=== PATIENT | female | born 1990 | race American Indian/Alaskan Native ===

== ENCOUNTER 2016-12-25 12:42 | Emergency (ER) | payer OTHER ==
[2016-12-25 13:43] VITALS: BP 125/81
[2016-12-25] MEDS ORDERED: TORADOL IM ONE (16:00)
--- NOTE | 2016-12-25 16:17 | Emergency Department Report ---
ED ENT HPI - General Chief complaint: Earache Stated complaint: EAR PAIN/TOOTH PAIN Time Seen by Provider: 12/25/16 15:22 Source: patient Mode of arrival: Ambulatory Limitations: No Limitations - History of Present Illness Initial comments: This is a 26-year-old female nontoxic, well nourished in appearance, no acute signs of distress presents to the ED complaining of right upper tooth pain that radiates towards right ear and head area patient denies any trauma to the region. Patient is a occurrence for past several months. Patient denies melena with the dentist. This denies any facial swelling, fever, chills, nausea , vomiting, chest pain, shortness of breath, stiff neck, nausea or vomiting. Patient denies any blurry vision. Patient states headache is worse headache she ever had and describes it as diffuse with aching level of 10 out of 10. Patient denies any visual changes. Patient denies thunderclap headache but stated she never had this headache before. Patient denies any allergies or past medical history. MD complaint: tooth pain, ear pain, other (headache) -: Gradual, month(s) Location: R ear, tooth # (1) 1 - tenderness and dental caries Severity: moderate Severity scale (0 -10): 10 Quality: aching Consistency: constant Improves with: none Worsens with: none Context- Dental: history of dental caries, poor dental care Associated Symptoms: toothache. denies: fever, cough, gum swelling, pain with swallowing, sore throat, tinnitus, hearing loss, discharge from ear, rhinorrhea - Related Data Previous Rx's Medication Instructions Recorded Last Taken Type Amoxicillin/K Clav Tab [Augmentin 1 tab PO Q12HR #20 tab 12/25/16 Unknown Rx 875 mg] Butalb/Acetamin/Caff 50-325-40 1 tab PO Q6HR PRN #30 tab 12/25/16 Unknown Rx [Fioricet] Allergies Allergy/AdvReac Type Severity Reaction Status Date / Time No Known Allergies Allergy Unverified 09/26/14 07:43 ED Dental HPI - General Chief complaint: Earache Stated complaint: EAR PAIN/TOOTH PAIN Time Seen by Provider: 12/25/16 15:22 Source: patient Mode of arrival: Ambulatory Limitations: No Limitations - Related Data Previous Rx's Medication Instructions Recorded Last Taken Type Amoxicillin/K Clav Tab [Augmentin 1 tab PO Q12HR #20 tab 12/25/16 Unknown Rx 875 mg] Butalb/Acetamin/Caff 50-325-40 1 tab PO Q6HR PRN #30 tab 12/25/16 Unknown Rx [Fioricet] Allergies Allergy/AdvReac Type Severity Reaction Status Date / Time No Known Allergies Allergy Unverified 09/26/14 07:43 ED Review of Systems ROS: Stated complaint: EAR PAIN/TOOTH PAIN Other details as noted in HPI Constitutional: denies: chills, fever Eyes: denies: eye pain, eye discharge, vision change ENT: dental pain. denies: ear pain, throat pain Respiratory: denies: cough, shortness of breath, wheezing Cardiovascular: denies: chest pain, palpitations Endocrine: no symptoms reported Gastrointestinal: denies: abdominal pain, nausea, diarrhea Genitourinary: denies: urgency, dysuria, discharge Musculoskeletal: denies: back pain, joint swelling, arthralgia Skin: denies: rash, lesions Neurological: denies: headache, weakness, paresthesias Psychiatric: denies: anxiety, depression Hematological/Lymphatic: denies: easy bleeding, easy bruising ED Past Medical Hx - Past Medical History Previous Medical History?: No - Surgical History Past Surgical History?: No - Social History Smoking Status: Never Smoker Substance Use Type: None - Medications Home Medications: Home Medications Medication Instructions Recorded Confirmed Last Taken Type Amoxicillin/K Clav Tab [Augmentin 1 tab PO Q12HR #20 tab 12/25/16 Unknown Rx 875 mg] Butalb/Acetamin/Caff 50-325-40 1 tab PO Q6HR PRN #30 tab 12/25/16 Unknown Rx [Fioricet] ED Physical Exam - General Limitations: No Limitations General appearance: alert, in no apparent distress - Head Head exam: Present: atraumatic, normocephalic - Eye Eye exam: Present: normal appearance, PERRL, EOMI. Absent: scleral icterus, conjunctival injection, nystagmus, periorbital swelling, periorbital tenderness Pupils: Present: normal accommodation - ENT ENT exam: Present: normal orophraynx, mucous membranes moist, TM's normal bilaterally, normal external ear exam - Expanded ENT Exam Expanded Ear exam: Present: normal external inspection Mouth exam: Present: normal external inspection, tongue normal. Absent: drooling, trismus, muffled voice, tongue elevation, laceration Teeth exam: Present: dental caries, fractured tooth # (1), dental tenderness # ( 1), gingival enlargement, other (no facial swelling noted. No abscess noted. Uvula midline. ) 1 - Fractured, Dental Tenderness Throat exam: Positive: normal inspection. Negative: tonsillar erythema, tonsillomegaly, tonsillar exudate, R peritonsillar mass, L peritonsillar mass - Neck Neck exam: Present: normal inspection, full ROM. Absent: tenderness, meningismus, lymphadenopathy, thyromegaly - Respiratory Respiratory exam: Present: normal lung sounds bilaterally. Absent: respiratory distress, wheezes, rales, rhonchi, stridor, chest wall tenderness, accessory muscle use, decreased breath sounds, prolonged expiratory - Cardiovascular Cardiovascular Exam: Present: regular rate, normal rhythm, normal heart sounds. Absent: bradycardia, tachycardia, irregular rhythm, systolic murmur, diastolic murmur, rubs, gallop - GI/Abdominal GI/Abdominal exam: Present: soft, normal bowel sounds. Absent: distended, tenderness, guarding, rebound, rigid, diminished bowel sounds - Rectal Rectal exam: Present: deferred - Extremities Exam Extremities exam: Present: normal inspection, full ROM, normal capillary refill. Absent: tenderness, pedal edema, joint swelling, calf tenderness - Back Exam Back exam: Present: normal inspection, full ROM. Absent: tenderness, CVA tenderness (R), CVA tenderness (L), muscle spasm, paraspinal tenderness, vertebral tenderness, rash noted - Neurological Exam Neurological exam: Present: alert, oriented X3, CN II-XII intact, normal gait, reflexes normal - Psychiatric Psychiatric exam: Present: normal affect, normal mood - Skin Skin exam: Present: warm, dry, intact, normal color. Absent: rash ED Course Vital Signs 12/25/16 13:39 Temperature 99.5 F Pulse Rate 77 Respiratory 18 Rate Blood Pressure 125/81 O2 Sat by Pulse 100 Oximetry - Reevaluation(s) Reevaluation #1: 12/25/16 16:25 Patient is speaking in full sentences with no signs of distress noted. ED Medical Decision Making - Medical Decision Making 26-year-old female presents with dental caries, gingivitis, and headache. Patient was examined by myself and patient is stable. CT of head/brain without contrast is obtained due to patient stating this to worse headache she ever had. Dictated By the radiologist with negative findings of any abnormalities. Patient received Toradol 60 mg IM in the ED and patient stated headache has significantly subsided. Patient states she feels much better. Patient received Augmentin, and Fioricet at discharge. Patient was instructed to follow -up with a primary care doctor/dentist in 24 hours or if symptoms worsen and continue return to emergency room as soon as possible possible. Patient is hemodynamically stable with stable vital signs. Patient states he is feeling better. At time time of discharge, the patient does not seem toxic or ill in appearance. No acute signs of distress noted. Patient agrees to discharge treatment plan of care. No further questions noted by the patient. Critical care attestation.: If time is entered above; I have spent that time in minutes in the direct care of this critically ill patient, excluding procedure time. ED Disposition Clinical Impression: Dental caries, Gingivitis Headache Qualifiers: Headache type: unspecified Headache chronicity pattern: unspecified pattern Intractability: not intractable Qualified Code(s): R51 - Headache Disposition: DC- TO HOME OR SELFCARE Is pt being admited?: No Does the pt Need Aspirin: No Condition: Stable Instructions: Gingivitis (ED), Dental Caries (ED), Acute Headache (ED), Amoxicillin/Clavulanate Potassium (By mouth) Additional Instructions: Follow up with a primary care doctor/dentist in 24 hours or if symptoms worsen and continue return to emergency room as soon as possible possible. Prescriptions: Amoxicillin/K Clav Tab [Augmentin 875 mg] 1 tab PO Q12HR #20 tab Butalb/Acetamin/Caff 50-325-40 [Fioricet] 1 tab PO Q6HR PRN #30 tab PRN Reason: Headache Referrals: LAURENT BENTON MD [Staff Physician] - 3-5 Days [facility] [Outside] - 24 Hours PRIMARY CARE, [Primary Care Provider] - 24 Hours Forms: Work/School Release Form(ED)
--- NOTE | 2016-12-25 16:48 | Cat Scan Report ---
CRANIAL CT SCAN: History: Severe headache. Serial contiguous axial images were obtained through the cranium. Intravenous contrast material was not administered. The ventricles are normal in size and appearance. There is no mass effect or midline shift. No areas of abnormally increased or decreased attenuation are seen. No mass lesion is seen. The mastoid air cells and visualized portions of the sinuses are normal. IMPRESSION: Cranial CT scan within normal limits.
== END 2016-12-25 18:12 | disposition home or self-care (01) ==
LOC: ED 12:42
DX: K02.9 Dental caries, unspecified (principal); K05.10 Chronic gingivitis, plaque induced; R51 Headache
CPT/HCPCS: 70450; 96372; 99283; J1885

== ENCOUNTER 2017-02-21 18:26 | Emergency (ER) | payer OTHER ==
[2017-02-21 20:58] LABS: Bilirubin,Urine NEG (Negative); Blood,Urine NEG (Negative); Ketones,Urine TR mg/dL (Negative); Leukocyte Esterase,Urine NEG (Negative); Mucus,Urine FEW /HPF; Nitrite,Urine NEG (Negative); Protein,Urine <15 mg/dL mg/dL (Negative); Urobilinogen,Urine < 2.0 mg/dL (<2.0)
[2017-02-21 21:00] LABS: Hematocrit 38.6 % (30.3-42.9); Hemoglobin 12.3 gm/dl (10.1-14.3); Mean Corpuscular Hemoglobin 23 pg (28-32); Mean Corpuscular Volume 70 fl (79-97); Red Blood Count 5.46 M/mm3 (3.65-5.03); White Blood Count 8.6 K/mm3 (4.5-11.0)
[2017-02-21 21:01] LABS: Basophils % (Auto) 0.5 % (0.0-1.8); Eosinophils % (Auto) 2.5 % (0.0-4.3); Mean Corpuscular HGB Conc 32 % (30-34); Platelet Count 253 K/mm3 (140-440); Red Cell Distribution Width 15.8 % (13.2-15.2)
[2017-02-21 21:14] LABS: Anion Gap 19 mmol/L; BUN/Creatinine Ratio 10; Blood Urea Nitrogen 6 mg/dL (7-17); Calcium 9.3 mg/dL (8.4-10.2); Carbon Dioxide 24 mmol/L (22-30); Chloride 98.3 mmol/L (98-107); Glucose 83 mg/dL (65-100); Potassium 3.9 mmol/L (3.6-5.0); Sodium 137 mmol/L (137-145)
--- NOTE | 2017-02-21 22:16 | Emergency Department Report ---
ED ENT HPI - General Chief complaint: Urogenital-Female Stated complaint: VOMITING,NAUSEA Time Seen by Provider: 02/21/17 21:55 Source: patient Mode of arrival: Ambulatory Limitations: No Limitations - History of Present Illness Initial comments: This is a 26-year-old female nontoxic, well nourished in appearance, no acute signs of distress presents to the ED with c/o of productive cough, vaginal discomfort, and nausea with vomiting. Patient describes productive cough as yellow/green mucus productive cough x1 month. Patient denies any vaginal discharge, concerns about STD, vaginal bleeding, nausea, vomiting, chest pain, shortness of breathe, headache, stiff neck, abdominal pain, pelvic pain, back pain. Patient stated vomit occurred yesterday 2 times but denies any nausea or vomiting today. Patient denies any dysuria, pyuria, or hematuria. Denies any allergies or past medical history. - Related Data Previous Rx's Medication Instructions Recorded Last Taken Type Amoxicillin/K Clav Tab [Augmentin 1 tab PO Q12HR #20 tab 12/25/16 Unknown Rx 875 mg] Butalb/Acetamin/Caff 50-325-40 1 tab PO Q6HR PRN #30 tab 12/25/16 Unknown Rx [Fioricet] Allergies Allergy/AdvReac Type Severity Reaction Status Date / Time No Known Allergies Allergy Unverified 09/26/14 07:43 ED Dental HPI - General Chief complaint: Urogenital-Female Stated complaint: VOMITING,NAUSEA Time Seen by Provider: 02/21/17 21:55 Source: patient Mode of arrival: Ambulatory Limitations: No Limitations - Related Data Previous Rx's Medication Instructions Recorded Last Taken Type Amoxicillin/K Clav Tab [Augmentin 1 tab PO Q12HR #20 tab 12/25/16 Unknown Rx 875 mg] Butalb/Acetamin/Caff 50-325-40 1 tab PO Q6HR PRN #30 tab 12/25/16 Unknown Rx [Fioricet] Allergies Allergy/AdvReac Type Severity Reaction Status Date / Time No Known Allergies Allergy Unverified 09/26/14 07:43 ED Review of Systems ROS: Stated complaint: VOMITING,NAUSEA Other details as noted in HPI ED Past Medical Hx - Past Medical History Previous Medical History?: No - Surgical History Past Surgical History?: No - Social History Smoking Status: Former Smoker Substance Use Type: None - Medications Home Medications: Home Medications Medication Instructions Recorded Confirmed Last Taken Type Amoxicillin/K Clav Tab [Augmentin 1 tab PO Q12HR #20 tab 12/25/16 Unknown Rx 875 mg] Butalb/Acetamin/Caff 50-325-40 1 tab PO Q6HR PRN #30 tab 12/25/16 Unknown Rx [Fioricet] ED Physical Exam - General Limitations: No Limitations ED Course Vital Signs 02/21/17 20:02 Temperature 98.5 F Pulse Rate 93 H Respiratory 18 Rate Blood Pressure 116/65 O2 Sat by Pulse 99 Oximetry ED Medical Decision Making - Lab Data Result diagrams: 02/21/17 20:20 02/21/17 20:20 Critical care attestation.: If time is entered above; I have spent that time in minutes in the direct care of this critically ill patient, excluding procedure time. ED Disposition Condition: Stable Referrals: PRIMARY CARE, [Primary Care Provider] - 3-5 Days
--- NOTE | 2017-02-21 22:21 | Emergency Department Report ---
- General Chief Complaint: Urogenital-Female Stated Complaint: VOMITING,NAUSEA Time Seen by Provider: 02/21/17 21:55 Source: patient Mode of arrival: Ambulatory Limitations: No Limitations - History of Present Illness Initial Comments: This is a 26-year-old female nontoxic, well nourished in appearance, no acute signs of distress presents to the ED with c/o of productive cough, vaginal discomfort, and nausea with vomiting. Patient describes productive cough as yellow/green mucus productive cough x1 month. Patient denies any vaginal discharge, concerns about STD, vaginal bleeding, nausea, vomiting, chest pain, shortness of breathe, headache, stiff neck, abdominal pain, pelvic pain, back pain. Patient stated vomit occurred yesterday 2 times but denies any nausea or vomiting today. Patient denies any dysuria, pyuria, or hematuria. Denies any allergies or past medical history. MD Complaint: cough -: Gradual, month(s) (1) Severity: mild Severity scale (0 -10): 0 Improves With: nothing Worsens With: nothing Associated Symptoms: cough. denies: fever, chills, myalgias, diaphoresis, headache, rhinorrhea, nasal congestion, sore throat, stiff neck, chest pain, shortness of breath, abdominal pain, nausea, vomiting, diarrhea, dysuria, rash, confusion, right sweats, weight loss, epistaxis, hoarseness, ear pain Treatments Prior to Arrival: none - Related Data Previous Rx's Medication Instructions Recorded Last Taken Type Amoxicillin/K Clav Tab [Augmentin 1 tab PO Q12HR #20 tab 12/25/16 Unknown Rx 875 mg] Butalb/Acetamin/Caff 50-325-40 1 tab PO Q6HR PRN #30 tab 12/25/16 Unknown Rx [Fioricet] Amoxicillin 500 mg PO Q12H #20 capsule 02/21/17 Unknown Rx Metoclopramide HCl [Reglan TAB] 5 mg PO Q8H 30 Days tablet 02/21/17 Unknown Rx Allergies Allergy/AdvReac Type Severity Reaction Status Date / Time No Known Allergies Allergy Unverified 09/26/14 07:43 ED Review of Systems ROS: Stated complaint: VOMITING,NAUSEA Other details as noted in HPI Constitutional: denies: chills, fever Eyes: denies: eye pain, eye discharge, vision change ENT: denies: ear pain, throat pain Respiratory: cough. denies: shortness of breath, wheezing Cardiovascular: denies: chest pain, palpitations Endocrine: no symptoms reported Gastrointestinal: denies: abdominal pain, nausea, diarrhea Genitourinary: denies: urgency, dysuria, discharge Musculoskeletal: denies: back pain, joint swelling, arthralgia Skin: denies: rash, lesions Neurological: denies: headache, weakness, paresthesias Psychiatric: denies: anxiety, depression Hematological/Lymphatic: denies: easy bleeding, easy bruising ED Past Medical Hx - Past Medical History Previous Medical History?: No - Surgical History Past Surgical History?: No - Social History Smoking Status: Former Smoker Substance Use Type: None - Medications Home Medications: Home Medications Medication Instructions Recorded Confirmed Last Taken Type Amoxicillin/K Clav Tab [Augmentin 1 tab PO Q12HR #20 tab 12/25/16 Unknown Rx 875 mg] Butalb/Acetamin/Caff 50-325-40 1 tab PO Q6HR PRN #30 tab 12/25/16 Unknown Rx [Fioricet] Amoxicillin 500 mg PO Q12H #20 capsule 02/21/17 Unknown Rx Metoclopramide HCl [Reglan TAB] 5 mg PO Q8H 30 Days tablet 02/21/17 Unknown Rx ED Physical Exam - General Limitations: No Limitations General appearance: alert, in no apparent distress - Head Head exam: Present: atraumatic, normocephalic, normal inspection - Eye Eye exam: Present: normal appearance, PERRL, EOMI. Absent: scleral icterus, conjunctival injection, nystagmus, periorbital swelling, periorbital tenderness - ENT ENT exam: Present: normal exam, normal orophraynx, mucous membranes moist, TM's normal bilaterally, normal external ear exam - Neck Neck exam: Present: normal inspection, full ROM. Absent: tenderness, meningismus, lymphadenopathy, thyromegaly - Respiratory Respiratory exam: Present: normal lung sounds bilaterally. Absent: respiratory distress, wheezes, rales, rhonchi, stridor, chest wall tenderness, accessory muscle use, decreased breath sounds, prolonged expiratory - Cardiovascular Cardiovascular Exam: Present: regular rate, normal rhythm, normal heart sounds. Absent: irregular rhythm, systolic murmur, diastolic murmur, rubs, gallop - GI/Abdominal GI/Abdominal exam: Present: soft, normal bowel sounds. Absent: distended, tenderness, guarding, rebound, rigid, diminished bowel sounds - Rectal Rectal exam: Present: deferred - Extremities Exam Extremities exam: Present: normal inspection, full ROM, normal capillary refill. Absent: tenderness, pedal edema, joint swelling, calf tenderness - Back Exam Back exam: Present: normal inspection, full ROM. Absent: tenderness, CVA tenderness (R), CVA tenderness (L), muscle spasm, paraspinal tenderness, vertebral tenderness, rash noted - Neurological Exam Neurological exam: Present: alert, oriented X3, CN II-XII intact, normal gait, reflexes normal - Psychiatric Psychiatric exam: Present: normal affect, normal mood - Skin Skin exam: Present: warm, dry, intact, normal color. Absent: rash ED Course Vital Signs 02/21/17 20:02 Temperature 98.5 F Pulse Rate 93 H Respiratory 18 Rate Blood Pressure 116/65 O2 Sat by Pulse 99 Oximetry - Reevaluation(s) Reevaluation #1: 02/21/17 22:18 Patient is speaking in full sentences with no signs of distress noted. ED Medical Decision Making - Lab Data Result diagrams: 02/21/17 20:20 02/21/17 20:20 - Medical Decision Making This 26-year-old female that presents with upper respiratory infection. Patient is stable and was examined by me. UA is positive for . Otherwise are unremarkable. Due to patient stating symptoms are more productive cough and patient empirically with amoxicillin. Patient has been notified of positive test. Patient stated she is not concerned about STD. There is no abdominal/pelvic pain. Deneis vaginal discharge. Jsut stataed its a little discomfort feeling of being tight. Patient was instructed Follow- up with a primary care doctor /[employer] in 3-5 days or if symptoms worsen and continue return to emergency room as soon as possible. At time time of discharge, the patient does not seem toxic or ill in appearance. No acute signs of distress noted. Patient agrees to discharge treatment plan of care. No further questions noted by the patient. Critical care attestation.: If time is entered above; I have spent that time in minutes in the direct care of this critically ill patient, excluding procedure time. ED Disposition Clinical Impression: Qualifiers: Weeks of gestation: unspecified Qualified Code(s): Z34.90 - Encounter for supervision of normal , unspecified, unspecified trimester Upper respiratory infection Qualifiers: URI type: unspecified URI Qualified Code(s): J06.9 - Acute upper respiratory infection, unspecified Disposition: DC-01 TO HOME OR SELFCARE Is pt being admited?: No Does the pt Need Aspirin: No Condition: Stable Instructions: (ED), Upper Respiratory Infection (ED), Metoclopramide (By mouth) Additional Instructions: Follow-up with a primary care doctor/OBGYN In 3-5 days or if symptoms worsen and continue return to emergency room as soon as possible. Prescriptions: Amoxicillin 500 mg PO Q12H #20 capsule Metoclopramide HCl [Reglan TAB] 5 mg PO Q8H 30 Days tablet Referrals: PRIMARY CARE, [Primary Care Provider] - 3-5 Days JULIO LAZARO MD [Staff Physician] - 3-5 Days NAYLA RODRIGUEZ MD [Staff Physician] - 3-5 Days [facility] [Outside] - 3-5 Days [facility] [Outside] - 3-5 Days Forms: Work/School Release Form(ED)
[2017-02-21 23:38] VITALS: BP 118/67
== END 2017-02-21 23:38 | disposition home or self-care (01) ==
LOC: ED 18:26
DX: O99.519 Diseases of the respiratory system complicating pregnancy, unspecified trimester (principal); J06.9 Acute upper respiratory infection, unspecified; Z3A.00 Weeks of gestation of pregnancy not specified; Z87.891 Personal history of nicotine dependence
CPT/HCPCS: 36415; 80048; 81001; 84702; 84703; 85025; 99283

== ENCOUNTER 2019-03-27 11:57 | Emergency (ER) | payer MEDICAID ==
[2019-03-27 14:22] VITALS: BP 117/84
--- NOTE | 2019-03-27 14:28 | Emergency Department Report ---
Chief Complaint: Upper Respiratory Infection Stated Complaint: COUGH/FLU SYM Time Seen by Provider: 03/27/19 14:18 - HPI History of Present Illness: 28 y/o female comes in chest and back pain with coughing. Taking Tylenol and avail cold symptoms. No fever. No N/V or diarrhea. PMH: anemia. Meds none. LMP 03/11/19. NO travel, no control + smokes. PCP None. NKDA - Exam Physical Exam: Exam : MSE screening note: Focused history and physical exam performed. Due to findings the following was ordered: ED Disposition for MSE Clinical Impression: Viral syndrome Disposition: Z-07 MED SCREENING EXAM-LEFT Is pt being admited?: No Does the pt Need Aspirin: No Condition: Stable Instructions: Viral Syndrome (ED) Referrals: PRIMARY MD IDRIS [Primary Care Provider] - 3-5 Days REBECA RODRIGUEZ MD [Staff Physician] - 3-5 Days
== END 2019-03-27 14:30 | disposition left against medical advice (07) ==
LOC: ED 11:57
DX: B34.9 Viral infection, unspecified (principal)
CPT/HCPCS: 99282